=== PATIENT | female | born 1975 | race Caucasian/White ===

== ENCOUNTER 2016-08-17 18:47 | Emergency (ER) | payer OTHER ==
--- NOTE | 2016-08-17 19:15 | DIAGNOSTIC IMAGING REPORT ---
PROCEDURE: CT HEAD WITHOUT CONTRAST INDICATION: CODE STROKE TECHNIQUE: Noncontrast axial images with sagittal and coronal reformations. COMPARISON: None. FINDINGS: Sulci, ventricular system, and brain parenchyma are normal. No evidence of acute intracranial process. Visualized mastoids and sinuses are clear. IMPRESSION: 1. Negative non-enhanced head CT. 2. Findings discussed with Dr. Al at 07:14 p.m., [place] Standard Time.
--- NOTE | 2016-08-17 20:55 | ED ORDER SUMMARY ---
..... Patient: DHARMESH KERR OrderSheet [facility] VisitID: [id number] [place] [address] 41y, F Registration Date/Time: 08/17/2016 ORDER SHEET Weight: 108.8 kg (measured) Allergies: No Known Drug Allergy GENERAL ORDERS: CT Head wo Cont Urgent (18:53 08/17/2016 Iron Leblanc) (Ack 18:53 LNations ER Tech1) (19:11 MCampbell) Stroke Panel Stat (18:54 08/17/2016 Iron Leblanc) (Ack 18:57 LNations ER Tech1) (19:20 RCollier R.N.) UA-Culture if indicated Urgent (21:19 08/17/2016 RCollier R.N. verbal order read back to Iron Leblanc) (Sent 21:22 IJurca ER Tech1) (22:11 RCollier R.N.) MEDICATION ORDERS: IV FLUIDS: IV Saline Lock (18:54 08/17/2016 Iron Leblanc) (Ack 18:58 RCollier R.N.) ORDER SHEET NOTES: [Electronically signed by Sunny Al Dr. (22:15 08/17/2016)] [Electronically signed by Carmina Grant R.N. (05:10 08/18/2016)] [Electronically locked/signed by Carmina Grant R.N. (05:10 08/18/2016)]
--- NOTE | 2016-08-17 20:55 | ED CLINICAL REPORT ---
Clinical Report - Physicians/Mid Levels [facility] [address] [place] [address] 08/17/2016 18:49 Patient: DHARMESH KERR Time Seen: 18:52; initial patient contact. HISTORY OF PRESENT ILLNESS Chief Complaint: WEAKNESS and IMPAIRED SPEECH. This started about 5 hours ago, patient was last known well (this AM) and is still present. It was abrupt in onset and has been constant. The patient has had new onset of weakness of the right face (moderate), right arm (moderate), right hand (moderate), right leg (moderate) and right foot (moderate). She has had tingling. No numbness, visual disturbance, impaired swallowing or recent fall. She has had difficulty with speech. She has had difficulty walking. At its maximum deficit described as moderate. When seen in the E.D.,deficit described as moderate. No dizziness, altered mental status, seizure or blackouts. Usually is alert and oriented X3 and has normal mobility. Similar symptoms previously: Once. 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 Recent medical care: Not recently seen/assessed. REVIEW OF SYSTEMS No fever, headache, head injury, chest pain or difficulty breathing. All systems otherwise negative, except as recorded above. PAST HISTORY ( CVA - Cerebrovascular Accident. SURGERIES: Ectopic [2004].). Medications: None. Allergies: No Known Drug Allergy. SOCIAL HISTORY Never smoker. Occasional alcohol use. No drug use. ADDITIONAL NOTES The nursing notes have been reviewed. PHYSICAL EXAM Vital Signs: 08/17/2016 18:51 BP: 148/71. HR: 81. RR: 15. O2 saturation: 94%. Pain level now: 3/10. Have been reviewed. Hypertensive. Heart rate normal. Respiratory rate normal. Oxygen saturation low. Appearance: Alert. No acute distress. Head: Head atraumatic. Eyes: Pupils equal, round and reactive to light. ENT: Normal ENT inspection. Airway intact. Pharynx normal. Neck: Normal inspection. Neck supple. No carotid bruit. CVS: Normal heart rate and rhythm. Heart sounds normal. Respiratory: No respiratory distress. Breath sounds normal. Abdomen: Soft and nontender. No organomegaly. Skin: Skin warm and dry. Normal skin color. Extremities: Extremities exhibit normal ROM. No calf tenderness. No lower extremity edema. Neuro: Awake. Alert. Oriented X 3. Expressive aphasia (Mild). Mood/affect normal. Cranial nerves II through XII intact. Sensory deficit present. Altered sensation to light touch on the right face, right arm and right leg. Moderate right sided pronator drift. Reflex exam: right triceps 2+, left triceps 2+, right brachioradialis 2+, left brachioradialis 2+, right patellar 2+, left patellar 2+, right Achilles 2+ and left Achilles 2+. NIH Stroke Scale: score 7. Level of Consciousness: alert (0). LOC Questions: both (0). LOC Commands: both (0). Best gaze: normal (0). Visual field loss: none (0). Facial palsy: minor (1). Motor arm: some effort against gravity right arm (2). Motor leg: some effort against gravity right leg (2). Sensory loss: mild to moderate (1). Aphasia: mild to moderate (1). Dysarthria: normal (0). Extinction and inattention: none (0). LABS, X-RAYS, AND EKG CT Head: (Negative non-enhanced head CT.). Head CT performed without contrast. Prior studies were not available for comparison. The study was interpreted by the radiologist and discussed with the radiologist. Laboratory Tests: UA-Culture if indicated: (EPIFANIO: 08/17/2016 21:00) ( MsgRcvd 08/17/2016 21:53) Final results Test Result Flag Units (Reference) URINE COLOR YELLOW URINE APPEARANCE CLEAR URINE GLUCOSE NEGATIVE (NEGATIVE) URINE BILIRUBIN NEGATIVE (NEGATIVE) URINE KETONE NEGATIVE (NEGATIVE) URINE SPECIFIC GRAVITY <= 1.005 L (1.010-1.030) URINE PH 6.0 (5.0-8.0) URINE PROTEIN NEGATIVE (NEGATIVE) URINE UROBILINOGEN 0.2 EU/dL (0.2-1.0) URINE NITRITE NEGATIVE (NEGATIVE) URINE BLOOD NEGATIVE (NEGATIVE) URINE LEUK ESTERASE NEGATIVE (NEGATIVE) URINE RBC NONE SEEN rbc/hpf (0-1) URINE WBC 0-1 wbc/hpf (0-1) URINE EPITHELIAL CELLS 1-3 EPI/hpf (0-5) URINE BACTERIA TRACE (<1+) (NONE SEEN) URINE COMMENT CULT NOT INDICATED URINE CULTURES ARE SET-UP BASED ON THE FOLLOWING CRITERIA:POSITIVE NITRITEPOSITIVE LEUKOCYTE ESTERASEGREATER THAN 10 WHITE BLOOD CELLSMODERATE (2+) OR GREATER BACTERIA CBC w Diff: (EPIFANIO: 08/17/2016 19:00) ( [facility] 08/17/2016 19:17) Final results Test Result Flag Units (Reference) WHITE BLOOD COUNT 11.7 H K/uL (4.5-11.5) RED BLOOD COUNT 4.85 M/uL (4.00-5.20) HEMOGLOBIN 14.4 gm/dL (12.0-16.0) HEMATOCRIT 43.1 % (36.0-46.0) MEAN CELL VOLUME 89 fL (80-100) MEAN CORPUSCULAR HGB 30 pg (26-34) MEAN CORPUSCULAR HGB CONC 34 g/dL (31-37) RED CELL DISTRIBUTION WIDTH 13.2 % (11.6-14.8) PLATELET COUNT 333 K/uL (150-400) LYMPH % 35.1 % (25-40) MONO % 6.5 % (3-14) GRANULOCYTE % 58.4 (53-90) PT with INR: (EPIFANIO: 08/17/2016 19:00) ( [facility] 08/17/2016 21:55) Final results Test Result Flag Units (Reference) INR 0.9 (0.8-1.2) Low Intensity Therapy: INR 1.5-2.0 PT range 18.5-23.1Mod.Intensity Therapy: INR 2.0-3.0 PT range 23.1-31.5High Intensity Therapy: INR 2.5-3.5 PT range 27.4-35.5High Intensity Therapy 2: INR 3.0-4.0 PT range 31.5-39.3 APTT 25 SECONDS (24-34) D-DIMER QUANTITATIVE < 0.27 L ug/mLFEU (0.27-0.52) The primary value of this quantitative assay relates toits negative predictive value (i.e. exclusion) of pulmonaryembolism/deep vein thrombosis/DIC.Elevated levels of d-dimer may also occur with:, age, cancer, inflammation, liver disease,post-op, infection, hematoma, coronary disease, peripheralarteriopathy, bleeding disorders and thrombolytic treatment.Results should be correlated with other clinical andradiological data.Testing Methodology: Latex Immunoassay FIBRINOGEN 368 mg/dL (193-455) CMP: (EPIFANIO: 08/17/2016 19:00) ( MsgRcvd 08/17/2016 19:49) Final results Test Result Flag Units (Reference) GLUCOSE 163 H mg/dL (70-110) BUN 13 mg/dL (7-18) CREATININE 0.9 mg/dL (0.6-1.3) Estimated GFR >60 mL/min Estimated GFR- >60 mL/min Note: Persistent reduction over 3 months in eGFR<60 mL/min/1.73 m2 defines CKD. Patients with eGFR values>=60 mL/min/1.73 m2 may also have CKD if evidence ofpersistent proteinuria. Additional information may be foundat www.kidney.org. SODIUM 142 mmol/L (136-145) POTASSIUM 3.5 mmol/L (3.5-5.1) CHLORIDE 104 mmol/L (98-107) CARBON DIOXIDE 28 mmol/L (21-32) CALCIUM 8.9 mg/dL (8.5-10.1) TOTAL PROTEIN 7.3 g/dL (6.4-8.2) ALBUMIN 3.3 g/dL (3.3-5.0) BILIRUBIN, TOTAL 0.4 mg/dL (0.0-1.0) ALKALINE PHOSPHATASE 82 U/L (46-116) AST (SGOT) 21 U/L (15-37) ALT (SGPT) 40 U/L (12-78) . PROGRESS AND PROCEDURES Discussed case with on-call health care provider, (call returned 20:54 Dr. Hartmann stroke fellow at [facility], accepts pt.). Disposition: Benefits, risks and alternatives to transfer explained to patient and family. Transferred to [facility]. Condition: good. CLINICAL IMPRESSION Acute weakness of the right face, right upper extremity and right lower extremity. INSTRUCTIONS Follow-up: Screening today revealed the patient's blood pressure to be in the pre-hypertensive range. The patient was transferred and blood pressure will be managed by the receiving provider. (Electronically signed by Sunny lA Dr. 08/17/2016 22:15)
--- NOTE | 2016-08-17 20:55 | ED NURSING NOTES ---
Clinical Report - Nurses [facility] [address] [place] [address] 08/17/2016 18:49 Patient: DHARMESH KERR TRIAGE Triage time 18:51. Acuity: LEVEL 2. Chief Complaint: WEAKNESS and IMPAIRED SPEECH and (headache). Alert. No acute distress. BERNARD COMA SCORE: Bernard Coma Scale: 15- eyes open spontaneously (4); best verbal response- oriented x 4 (5); best motor response- obeys commands (6). --18:57 Carmina Grant R.N. 18:51 08/17/16. BP: 148/71 taken on the left arm, via an automated monitor, while sitting. HR: 81. RR: 15. O2 saturation: 94% on room air. Pain level now: 05/08. --18:57 Carmina Grant R.N. Weight: 108.8 kg measured. Height/Length: 60 inches Per Patient. BMI: 46.8. --18:54 Carmina Grant R.N. Medications None. --18:52 Carmina Grant R.N. Allergies No Known Drug Allergy. --18:52 Carmina Grant R.N. History Arrived by private vehicle. Historian: patient. Accompanied by family. Primary physician (None). This started today at about 1400. PAST MEDICAL HX: Immunizations: up-to-date. SOCIAL HX: Never smoker. Occasional alcohol use. No drug use. NUTRITIONAL RISK ASSESSMENT: The nutritional risk assessment revealed no deficiencies. FUNCTIONAL ASSESSMENT: Functional assessment: no impairments noted. --18:57 Carmina Grant R.N. PROBLEMS: CVA - Cerebrovascular Accident. --18:53 Carmina Grant R.N. ADDITIONAL SURGERIES: Ectopic [2004]. --18:53 Carmina Grant R.N. Interventions ID band on patient. To treatment room. --18:57 Carmina Grant R.N. PHYSICAL ASSESSMENT To room via wheelchair. GENERAL / NEURO / PSYCH: Awake. Oriented X 4. Alert. Appears in no acute distress. Speech normal. Mood/affect normal. Strength is unequal; left marketing administrator is greater than the right marketing administrator. HEENT: No facial asymmetry noted. RESPIRATORY: Respirations not labored. CVS: Capillary refill less than 2 seconds. SKIN: Skin is warm and dry. --18:57 Carmina Grant R.N. NURSING PROGRESS NOTES Head of bed elevated. Two patient identifiers checked. Call light placed in reach. Side rails up x 1. Bed placed in lowest position. Brakes of bed on. --18:57 Carmina Grant R.N. Patient ready for evaluation- chart flagged. --18:57 Carmina Grant R.N. Patient transported to [place] by stretcher with tech. (19:02). --19:05 Carmina Grant R.N. 19:00 08/17/2016 Site #1 started via IV in the right antecubital space with an 20g angiocath, with aseptic technique and good blood return; one attempt. Blood drawn: rainbow set. Labeled in the presence of the patient and sent to the lab. Saline lock flushed with 10 mL saline (Started by MARCELLUS Bolivar). --19:06 Carmina Grant R.N. classroom monitor, pulse oximeter and NIBP monitor placed on patient; monitor alarms on. --19:30 Carmina Grant R.N. 19:30 08/17/16. BP: 134/64. HR: 97. RR: 15. O2 saturation: 97%. --19:30 Carmina Grant R.N. 20:35 08/17/16. Temp: 98.0 F. --20:35 Mark Romeo ER Tech1 ( assisted to restroom via wheelchair accompanied by , urine sample requested, urine collection "hat" provided). --20:56 Carmina Grant R.N. 21:00 late entry -. Patient ID band checked for patient name and birthdate: patient confirmed. Instructions provided to collect clean catch urine and patient verbalized understanding urine collected with return of yellow-colored clear urine; sample sent to lab. Specimen labeled in the presence of the patient. --21:18 Carmina Grant R.N. DISPOSITION / DISCHARGE 21:07 08/17/2016 Site #[address] upon transfer; patent. Flushed with 10 mL saline. --21:07 Carmina Grant R.N. 21:06 08/17/16. BP: 131/79. HR: 88. RR: 15. O2 saturation: 96%. Temp: 98.2 F (oral). Pain level now: 0/10. --21:08 Carmina Grant R.N. Report was given via a fax. ([facility]). --21:08 Carmina Grant R.N. Patient's personal items include: shirt, pants, coat and shoes; items were placed in belongings bag and given to the family. Collection of belongings was witnessed by 1 nurse. --21:14 Carmina Grant R.N. Patient's personal items include: purse; items were transported with the patient. --21:14 Carmina Grant R.N. Transferred to [facility]. Summary of care provided to transport team ([id number] 17 2016). --05:09 Carmina Grant R.N. Locked/Released at 08/18/2016 5:10 by Carmina Grant R.N.
--- NOTE | 2016-08-17 20:55 | ED NURSING NOTES ---
Clinical Report - Nurses [facility] [address] [place] [address] 08/17/2016 18:49 Patient: DHARMESH KERR TRIAGE Triage time 18:51. Acuity: LEVEL 2. Chief Complaint: WEAKNESS and IMPAIRED SPEECH and (headache). Alert. No acute distress. BERNARD COMA SCORE: Bernard Coma Scale: 15- eyes open spontaneously (4); best verbal response- oriented x 4 (5); best motor response- obeys commands (6). --18:57 Carmina Grant R.N. 18:51 08/17/16. BP: 148/71 taken on the left arm, via an automated monitor, while sitting. HR: 81. RR: 15. O2 saturation: 94% on room air. Pain level now: 05/08. --18:57 Carmina Grant R.N. Weight: 108.8 kg measured. Height/Length: 60 inches Per Patient. BMI: 46.8. --18:54 Carmina Grant R.N. Medications None. --18:52 Carmina Grant R.N. Allergies No Known Drug Allergy. --18:52 Carmina Grant R.N. History Arrived by private vehicle. Historian: patient. Accompanied by family. Primary physician (None). This started today at about 1400. PAST MEDICAL HX: Immunizations: up-to-date. SOCIAL HX: Never smoker. Occasional alcohol use. No drug use. NUTRITIONAL RISK ASSESSMENT: The nutritional risk assessment revealed no deficiencies. FUNCTIONAL ASSESSMENT: Functional assessment: no impairments noted. --18:57 Carmina Grant R.N. PROBLEMS: CVA - Cerebrovascular Accident. --18:53 Carmina Grant R.N. ADDITIONAL SURGERIES: Ectopic [2004]. --18:53 Carmina Grant R.N. Interventions ID band on patient. To treatment room. --18:57 Carmina Grant R.N. PHYSICAL ASSESSMENT To room via wheelchair. GENERAL / NEURO / PSYCH: Awake. Oriented X 4. Alert. Appears in no acute distress. Speech normal. Mood/affect normal. Strength is unequal; left label maker is greater than the right label maker. HEENT: No facial asymmetry noted. RESPIRATORY: Respirations not labored. CVS: Capillary refill less than 2 seconds. SKIN: Skin is warm and dry. --18:57 Carmina Grant R.N. NURSING PROGRESS NOTES Head of bed elevated. Two patient identifiers checked. Call light placed in reach. Side rails up x 1. Bed placed in lowest position. Brakes of bed on. --18:57 Carimna Grant R.N. Patient ready for evaluation- chart flagged. --18:57 Carmina Grant R.N. Patient transported to [place] by stretcher with tech. (19:02). --19:05 Carmina Grant R.N. 19:00 08/17/2016 Site #1 started via IV in the right antecubital space with an 20g angiocath, with aseptic technique and good blood return; one attempt. Blood drawn: rainbow set. Labeled in the presence of the patient and sent to the lab. Saline lock flushed with 10 mL saline (Started by MARCELLUS Bolivar). --19:06 Carmina Grant R.N. monitor and storage bin tender, pulse oximeter and NIBP monitor placed on patient; monitor alarms on. --19:30 Carmina Grant R.N. 19:30 08/17/16. BP: 134/64. HR: 97. RR: 15. O2 saturation: 97%. --19:30 Carmina Grant R.N. 20:35 08/17/16. Temp: 98.0 F. --20:35 Mark Romeo ER Tech1 ( assisted to restroom via wheelchair accompanied by , urine sample requested, urine collection "hat" provided). --20:56 Carmina Grant R.N. 21:00 late entry -. Patient ID band checked for patient name and birthdate: patient confirmed. Instructions provided to collect clean catch urine and patient verbalized understanding urine collected with return of yellow-colored clear urine; sample sent to lab. Specimen labeled in the presence of the patient. --21:18 aCrmina Grant R.N. DISPOSITION / DISCHARGE 21:07 08/17/2016 Site #[address] upon transfer; patent. Flushed with 10 mL saline. --21:07 Carmina Grant R.N. 21:06 08/17/16. BP: 131/79. HR: 88. RR: 15. O2 saturation: 96%. Temp: 98.2 F (oral). Pain level now: 0/10. --21:08 Carmina Grant R.N. Report was given via a fax. ([facility]). --21:08 Carmina Grant R.N. Patient's personal items include: shirt, pants, coat and shoes; items were placed in belongings bag and given to the family. Collection of belongings was witnessed by 1 nurse. --21:14 Carmina Grant R.N. Patient's personal items include: purse; items were transported with the patient. --21:14 Carmina Grant R.N. Transferred to [facility]. Summary of care provided to transport team (2129Aug 17 2016). --05:09 Carmina Grant R.N. Locked/Released at 08/18/2016 5:10 by Carmina Grant R.N.
--- NOTE | 2016-08-17 20:55 | ED ORDER SUMMARY ---
..... Patient: DHARMESH KERR OrderSheet [facility] VisitID: [id number] [place] [address] 41y, F Registration Date/Time: 08/17/2016 ORDER SHEET Weight: 108.8 kg (measured) Allergies: No Known Drug Allergy GENERAL ORDERS: CT Head wo Cont Urgent (18:53 08/17/2016 Iron Leblanc) (Ack 18:53 LNations ER Tech1) (19:11 MCampbell) Stroke Panel Stat (18:54 08/17/2016 Iron Leblanc) (Ack 18:57 LNations ER Tech1) (19:20 RCollier R.N.) UA-Culture if indicated Urgent (21:19 08/17/2016 RCollier R.N. verbal order read back to Iron Leblanc) (Sent 21:22 IJurca ER Tech1) (22:11 RCollier R.N.) MEDICATION ORDERS: IV FLUIDS: IV Saline Lock (18:54 08/17/2016 Iron Leblanc) (Ack 18:58 RCollier R.N.) ORDER SHEET NOTES: [Electronically signed by Sunny Al Dr. (22:15 08/17/2016)] [Electronically signed by Carmina Grant R.N. (05:10 08/18/2016)] [Electronically locked/signed by Carmina Grant R.N. (05:10 08/18/2016)]
--- NOTE | 2016-08-18 05:10 | ED MAR SUMMARY ---
..... Medication Administration Record [facility] [address] [place], [place] [id number] Patient: DHARMESH KERR Visit ID: [id number] 41y, F Weight: 108.8 kg Height/Length: 60 in BMI: 46.8 ALLERGIES: No Known Drug Allergy
--- NOTE | 2016-08-18 05:10 | ED DISCHARGE INSTRUCTIONS ---
Patient: DHARMESH KERR General Instructions [facility] VisitID: [id number] [place] [address] 41y, F Registration Date/Time: 08/17/2016 Acute weakness of the right face, right upper extremity and right lower extremity. INSTRUCTIONS Follow-up: Screening today revealed the patient's blood pressure to be in the pre-hypertensive range. The patient was transferred and blood pressure will be managed by the receiving provider. (Electronically signed by Sunny Al Dr. 08/17/2016 22:15)
--- NOTE | 2016-08-18 05:10 | ED MAR SUMMARY ---
..... Medication Administration Record [facility] [address] [place], [place] [id number] Patient: DHARMEHS KERR Visit ID: [id number] 41y, F Weight: 108.8 kg Height/Length: 60 in BMI: 46.8 ALLERGIES: No Known Drug Allergy
--- NOTE | 2016-08-18 05:10 | ED DISCHARGE INSTRUCTIONS ---
Patient: DHARMESH KERR General Instructions [facility] VisitID: [id number] [place] [address] 41y, F Registration Date/Time: 08/17/2016 Acute weakness of the right face, right upper extremity and right lower extremity. INSTRUCTIONS Follow-up: Screening today revealed the patient's blood pressure to be in the pre-hypertensive range. The patient was transferred and blood pressure will be managed by the receiving provider. (Electronically signed by Sunny Al Dr. 08/17/2016 22:15)
--- NOTE | 2016-08-18 05:10 | ED MED RECONCILIATION SUMMARY ---
Patient: DHARMESH KERR Medication Reconciliation Report [facility] VisitID: [id number] [address] [place] [address] 41y, F Registration Date/Time: 08/17/2016 Weight: 108.8 kg Height/Length: 60 in. BMI: 46.8 ALLERGIES: No Known Drug Allergy The patient's Home Medications are listed below: NONE. The source(s) of the original Home Medication information: Not obtained. The following Medications were given to the patient in the Emergency Department: None. The following Medications were prescribed to the patient: None.
--- NOTE | 2016-08-18 05:10 | ED MED RECONCILIATION SUMMARY ---
Patient: DHARMESH KERR Medication Reconciliation Report [facility] VisitID: [id number] [address] [place] [address] 41y, F Registration Date/Time: 08/17/2016 Weight: 108.8 kg Height/Length: 60 in. BMI: 46.8 ALLERGIES: No Known Drug Allergy The patient's Home Medications are listed below: NONE. The source(s) of the original Home Medication information: Not obtained. The following Medications were given to the patient in the Emergency Department: None. The following Medications were prescribed to the patient: None.
== END 2016-08-17 21:37 | disposition short-term general hospital (02) ==
LOC: ED SRH 18:47
DX: R29.810 Facial weakness (principal); R53.1 Weakness; R47.02 Dysphasia; Z86.73 Personal history of transient ischemic attack (TIA), and cerebral infarction without residual deficits
CPT/HCPCS: 90004; 90100; 91556; 94001; 94050; 94060; 95059